=== PATIENT | female | born 1955 | race Caucasian/White ===

== ENCOUNTER → 2016-12-09 | Outpatient (CLI) | payer BC ==
[~2016-12-09] MED LIST: ATOR80TA76 PO; ATR20T PO; CA C1TAB66 PO; CHOLESTEROL MED?; FENO135C PO; MELO7.5T46 PO; METO-333 PO; METO25TA PO; MILK175C PO; MTF500T; MULT-608 PO; NF-TYLARTH PO; OMEG1CAP24 PO; OXYC-12 PO; SITA25TA5 PO; [UNRECOGNIZED DRUG - OTHER] PO
--- OUTSIDE RECORDS SUMMARY | 2016-12-09 10:32 | XMS REPORT | Continuity of Care Document ---
Author Author [facility] Organization [facility] Address Unknown Phone Unavailable Care Team Providers Care Channel Cementer Name Role Phone ELOISA GOLDMAN DO PCP Insurance Providers Payer Name Policy Number [id number] Farhad Clement [facility] Self / Same As Patient Advance Directives Directive Response Recorded Date/Time Advance Directives Yes 12/08/15 9:48am Health Care Power of Health Administration Teacher No 12/08/15 9:48am Organ Donor Yes 12/08/15 9:48am Problems No problem information available. Medications Current Home Medications Medication Dose Units Route Directions Days/Qty Instructions Start Date Fenofibric Acid (Choline) 135 Mg 135 Mg Oral Daily 02/02/10 [place]-3 Fatty Acids/Fish Oil 1 Each 1 Each Oral Daily 07/17/12 Multivitamins 1 Tab 1 Tab Oral Daily 07/17/12 Atorvastatin Calcium 80 Mg 80 Mg Oral Daily 12/04/15 Metoprolol Tartrate 25 Mg 25 Mg Oral Daily 12/04/15 Sitagliptin Phosphate 25 Mg 25 Mg Oral Daily 12/04/15 Meloxicam 7.5 Mg 7.5 Mg Oral Daily 12/04/15 Past Home Medications Medication Directions Ordered Status Metformin Hcl (Glucophage) 500 Mg Tablet, 02/02/10 Discontinued Atorvastatin Calcium 20 Mg Tablet, 80 Mg Oral Daily 02/02/10 Discontinued [Cholesterol Med?] , 02/02/10 Discontinued [Ongeleza] , 500 Mg Oral Daily 07/17/12 Discontinued Metoprolol Succinate 25 Mg Tab.sr.24h, 0.5 Tab Oral Daily 07/17/12 Discontinued Ca Carbonate/Vitamin D3/Vit K 1 Each Tab.chew, 1 Each Oral Daily 07/17/12 Discontinued Acetaminophen 650 Mg Cplt, 2 Tab Oral Daily 07/17/12 Discontinued Milk Thistle Fruit Extract 175 Mg Capsule, 175 Mg Oral Daily 07/17/12 Discontinued Oxycodone Hcl/Acetaminophen 1 Each Tablet, 1 Each Oral Every 4HRS as needed 07/30/12 Discontinued Social History Social History Problem Response Recorded Date/Time Recent Foreign Travel No 04/13/2016 9:13am Hospital Discharge Instructions No hospital discharge instructions. Plan of Care Prescriptions See Medication Section Functional Status No functional status results. Allergies, Adverse Reactions, Alerts Allergen Type Severity Reaction Status Last Updated Sulfa (Sulfonamide Antibiotics) ([id number]) Allergy RASH Active adhesive ([id number]) Allergy BLISTERS Active 07/17/12 Immunizations No immunization records. Vital Signs No known vital signs results. Results No known relevant diagnostic tests, laboratory data and/or discharge summary. Procedures No known history of procedures. Encounters Encounter Location Arrival/Admit Date Discharge/Depart Date Attending Provider Discharged Recurring [facility] 05/07/16 11:23am 12:07pm ELOISA GOLDMAN DO
--- NOTE | 2016-12-10 10:41 | Diagnostic Imaging Report ---
Bilateral screening mammogram. The current study was also evaluated with a Computer Aided Detection (CAD) system. INDICATION: Screening. No current complaints stated on the questionnaire. COMPARISON: 11/14/2012. FINDINGS: The breasts are composed of scattered fibroglandular densities. There are from occasional benign-appearing calcifications. Allowing for technique and positional differences, no suspicious change is seen. IMPRESSION: No significant change. ACR BI-RADS Category 2: Benign findings. Result letter will be mailed to the patient. Note: At least 10% of breast cancer is not imaged by mammography. Dictated by: Dictated on workstation # [id number]
== END ==
LOC: RAD 10:29
PROVIDERS: ATTEND Nurse Practitioner Family
DX: Z12.31 Encounter for screening mammogram for malignant neoplasm of breast (principal)
CPT/HCPCS: 77067

== ENCOUNTER → 2018-01-13 | Outpatient (CLI) | payer BC ==
--- NOTE | 2018-01-13 13:29 | Diagnostic Imaging Report ---
INDICATION: Digital mammogram bilateral screening. This study was compared to the prior exams of 12/09/16 and 11/14/12. At this time, there are no current complaints. The current study was also evaluated with a Computer Aided Detection (CAD) system. FINDINGS: There are scattered fibroglandular densities in both breasts which could obscure a lesion. Overall, there does not appear to have been any significant change when compared to the prior exam. No primary or secondary sign of malignancy is noted. IMPRESSION: There is no radiographic evidence for malignancy. ACR BI-RADS Category 1: Negative. Result letter will be mailed to the patient. Note: At least 10% of breast cancer is not imaged by mammography. Dictated by: Dictated on workstation # [id number]
== END ==
LOC: RAD 07:55
PROVIDERS: ATTEND Nurse Practitioner Family
DX: Z12.31 Encounter for screening mammogram for malignant neoplasm of breast (principal)
CPT/HCPCS: 77067

== ENCOUNTER → 2019-02-28 | Outpatient (CLI) | payer BC ==
--- NOTE | 2019-02-28 09:41 | Diagnostic Imaging Report ---
INDICATION: Routine screening. COMPARISON: 01/13/2018 and 12/09/2016. TECHNIQUE: 2D and 3D bilateral screening mammography was performed with CAD. FINDINGS: Scattered fibroglandular densities are identified bilaterally. The parenchymal pattern is stable. No dominant mass or malignant appearing microcalcifications are seen. The axillae are unremarkable. IMPRESSION: No mammographic features suspicious for malignancy are identified. ACR BI-RADS Category 1: Negative. Result letter will be mailed to the patient. Note: At least 10% of breast cancer is not imaged by mammography. Dictated by: Dictated on workstation # [id number]
== END ==
LOC: RAD 07:12
PROVIDERS: ATTEND Family Medicine
DX: Z12.31 Encounter for screening mammogram for malignant neoplasm of breast (principal)
CPT/HCPCS: 77067

== ENCOUNTER → 2019-05-08 | Outpatient (CLI) | payer BC ==
--- NOTE | 2019-05-08 11:04 | Diagnostic Imaging Report ---
PROCEDURE: US Thyroid. TECHNIQUE: Multiple real-time grayscale images were obtained of the thyroid in various projections. INDICATION: Thyroid nodules. Findings: Comparison is 03/18/2009. The right lobe of the thyroid is enlarged measuring 5.0 x 2.6 x 1.5 cm. There are multiple right-sided nodules along Nodule 1: Right side. 29 x 22 x 20 mm. This nodule is cystic and solid with a solid hyperechoic component. The assessment of this nodule is TIRADS 2. Nodule 2: Right side. 11 x 8 x 12 mm. This nodule is solid and hypoechoic, wider than tall with well defined margins and no internal calcifications. This nodule was 7 x 6 x 5 mm on the prior exam. The assessment of this nodule is TIRADS 4. Nodule 3: Right side. 17 x 17 x 21 mm. This node nodule is solid, hypoechoic and taller than wide with ill-defined margins and no internal calcifications. This nodule was 13 x 9 x 11 mm on the prior exam. Assessment of this nodule is TIRADS 5. Impression: 1. A 12 mm moderately suspicious right-sided thyroid nodule should be followed (TIRADS 4). 2. A 21 mm highly suspicious right thyroid nodule is recommended for biopsy (TIRADS 5). TIRADS categories: TIRADS 1: Benign No FNA TIRADS 2: Not Suspicious No FNA TIRADS 3: Mildly Suspicious FNA if ? 2.5 cm Follow if ? 1.5 cm (At 1, 3 and 5 years from initial scan) TIRADS 4: Moderately Suspicious FNA if ? 1.5 cm Follow if ? 1 cm (At 1, 2, 3 and 5 years from initial scan) TIRADS 5: Highly Suspicious FNA if ? 1 cm Follow if ? 0.5 cm (Annually for 5 years from initial scan) Dictated by: Dictated on workstation # [id number]
== END ==
LOC: RAD 10:15
PROVIDERS: ATTEND Nurse Practitioner Family
DX: E04.2 Nontoxic multinodular goiter (principal)
CPT/HCPCS: 76536

== ENCOUNTER → 2019-05-17 | Outpatient (CLI) | payer BC ==
[~2019-05-17] VITALS: Ht 175.3 cm; Wt 95.3 kg
[~2019-05-17] MED LIST changes: +LIDOCAINE 1% INJ 20 ML 20 ML VIAL INJ ONE
--- NOTE | 2019-05-17 14:50 | Diagnostic Imaging Report ---
INDICATION: Right thyroid nodule. Patient presents for ultrasound-guided fine-needle aspiration. FINDINGS: Patient was brought to the procedure room, placed on table in the supine position. Ultrasound imaging over the right neck was performed to evaluate appropriate entry site. Right neck was then prepped and draped in the usual sterile fashion. Small amount of 1% lidocaine was utilized for local anesthesia. Total of four passes were made into the hypoechoic nodule in the right lobe of the thyroid, posterior to the cystic lesion utilizing 25-gauge needles. A fine-needle aspiration technique was utilized. Hemostasis was obtained using manual compression. Patient tolerated the procedure well. IMPRESSION: Ultrasound-guided fine-needle aspiration of the hypoechoic nodule in the right lobe of the thyroid, described on prior imaging from 05/08/2019. Cytology results are currently pending. Dictated by: Dictated on workstation # [id number]
== END ==
LOC: RAD 10:30
PROVIDERS: ATTEND Otolaryngology Otolaryngology/Facial Plastic Surgery
DX: E04.2 Nontoxic multinodular goiter (principal)

== ENCOUNTER → 2019-07-30 | Outpatient (CLI) | payer BC ==
[~2019-07-30] MED LIST changes: -LIDOCAINE 1% INJ 20 ML 20 ML VIAL INJ ONE
== END ==
LOC: CARD 08:08
PROVIDERS: ATTEND Internal Medicine Cardiovascular Disease
DX: E78.2 Mixed hyperlipidemia (principal); I10 Essential (primary) hypertension; E04.1 Nontoxic single thyroid nodule; R00.2 Palpitations
CPT/HCPCS: 93306

== ENCOUNTER → 2019-08-01 | Outpatient (CLI) | payer BC ==
[~2019-08-01] VITALS: Ht 177 cm; Wt 97.0 kg
[~2019-08-01] MED LIST changes: +CATHETER FLUSH 10 ML SYR IV PRN
[2019-08-01 09:27] VITALS: BP 140/90
--- NOTE | 2019-08-01 21:39 | STRESS TEST ---
DATE OF SERVICE: 08/01/2019 EXERCISE MYOVIEW STRESS TEST Baseline heart rate is 67. Baseline blood pressure 147/91. Baseline EKG is sinus rhythm with no ischemic changes. In summary, the patient was injected with 10.97 mCi of technetium-99 Myoview and the resting images were obtained. Then, the patient started exercising with a baseline heart rate, blood pressure and EKG mentioned above. The patient was able to exercise for 3 minutes and 30 seconds on standard Vadim protocol. With peak exercise level, the EKG was showing minimal nondiagnostic changes. Blood pressure was 190/92. During recovery, heart rate and blood pressure returned to baseline. EKG returned to baseline. The resting and stress images were reviewed and compared in the short axis, horizontal long axis, and vertical long axis views. Review of the images showed good radiotracer uptake with no significant ischemia or infarction. SSS is 2, SDS 1, TID value 1.03. On the gated images, the left ventricle appeared to be normal size with normal contractility. Calculated ejection fraction 67%. CONCLUSION: 1. The patient has fair exercise tolerance for a total of 3 minutes and 30 seconds on standard Vadim protocol, total of 5.2 METS achieving 99% of maximum expected heart rate. 2. Nondiagnostic EKG changes with exercise returned to baseline during recovery. 3. No significant ischemia or infarction on SPECT images. 4. Normal left ventricular size with normal contractility. Calculated ejection fraction is 67%. Job ID: [id number] DocumentID: [id number] Dictated Date: 08/01/2019 16:16:12 Employment Security Officer Date: 08/01/2019 21:39:06 Dictated By: JESSICA BAPTISTE MD
== END ==
LOC: CARD 07:37
PROVIDERS: ATTEND Internal Medicine Cardiovascular Disease
DX: E78.2 Mixed hyperlipidemia (principal); I10 Essential (primary) hypertension; E04.1 Nontoxic single thyroid nodule; R00.2 Palpitations
CPT/HCPCS: 78452; 93017

== ENCOUNTER → 2020-04-18 | Outpatient (CLI) | payer BC ==
[~2020-04-18] VITALS: Ht 175.3 cm; Wt 98.2 kg
[~2020-04-18] MED LIST changes: -CATHETER FLUSH 10 ML SYR IV PRN; +EZET10TA49 PO; +FAMO40TA6 PO; +LEVO150T6 PO; +METO50TA7 PO
== END | disposition home or self-care (01) ==
LOC: PREOP 04-17 05:48
PROVIDERS: ATTEND Internal Medicine
DX: Z01.818 Encounter for other preprocedural examination (principal)

== ENCOUNTER → 2020-07-16 | Outpatient (CLI) | payer BC | LOC: LABNPT 08:05 | PROVIDERS: ATTEND Family Medicine | DX: R05 Cough (principal); R06.00 Dyspnea, unspecified; Z20.828 Contact with and (suspected) exposure to other viral communicable diseases | CPT/HCPCS: 87635 ==

== ENCOUNTER 2020-07-30 05:32 | Outpatient (RCR) | payer BC ==
[~2020-07-30] VITALS: Ht 175 cm; Wt 100.0 kg
[~2020-07-30 05:32] MED LIST changes: +PANT20TA18 PO
== END 2020-07-30 10:38 | disposition home or self-care (01) ==
LOC: PREOP 05:32
PROVIDERS: ATTEND Internal Medicine
DX: Z01.818 Encounter for other preprocedural examination (principal)
CPT/HCPCS: 87635

== ENCOUNTER 2020-08-01 07:32 | Day surgery (SDC) | payer MEDICARE ==
--- NOTE | 2020-07-18 20:25 | HISTORY AND PHYSICAL ---
DATE OF SERVICE: COLONOSCOPY HISTORY AND PHYSICAL DATE OF ADMISSION: 08/01/2020. HISTORY OF PRESENT ILLNESS: This is an addendum history and physical. The patient was initially seen on 04/02/2020, but postponed her colonoscopy, I believe due to COVID related issues. She was due for screening colonoscopy and did have a past history of colon polyps when last performed by Dr. Real. She was set up for diagnostic EGD due to intermittent dysphagia. It temporarily improved, but now has recurred predominantly to solids. There have been no other changes in her medical history and she has not had any melena or bright red blood per rectum. PHYSICAL EXAMINATION: GENERAL: Revealed a white female appeared to be in no acute distress. VITAL SIGNS: Blood pressure 138/80. CHEST: Clear. CARDIOVASCULAR: Regular rate and rhythm without S3 or S4. ABDOMEN: Reveals some epigastric discomfort without rebound or guarding. No mass or organomegaly was noted. ASSESSMENT AND PLAN: The patient is set up for screening colonoscopy and diagnostic EGD as noted above on 08/01/2020. Prep instructions were given. Job ID: [id number] DocumentID: [id number] Dictated Date: 07/09/2020 11:55:39 Collision Repairer Date: 07/09/2020 12:44:40 Dictated By: KRISTAL COREY MD
[~2020-08-01] VITALS: Ht 175 cm; Wt 100.0 kg
[2020-08-01] MEDS ORDERED: LACTATED RINGERS 1,000 ML IV STA (07:43)
[2020-08-01] MEDS ORDERED: HURRICAINE EXT TUBE (BENZOCAINE) XX PRN (07:45)
[2020-08-01] MEDS ORDERED: LIDOCAINE JELLY 2% 6 ML SYRINGE MM PRN (07:45)
[2020-08-01] MEDS ORDERED: LACTATED RINGERS 1,000 ML IV ONE (07:49)
[2020-08-01 08:01] VITALS: BP 139/90
[2020-08-01] MEDS ORDERED: LIDOCAINE JELLY 2% 6 ML SYRINGE ONE (08:05)
[2020-08-01] MEDS ORDERED: HURRICAINE EXT TUBE (BENZOCAINE) ONE (08:05)
--- NOTE | 2020-08-01 08:07 | Pre-Op Note & Conscious Sedat ---
Pre-Operative Progress Note H&P Reviewed The H&P was reviewed, patient examined and no changes noted. Date H&P Reviewed: Aug 01, 2020 Time H&P Reviewed: 08:07 Conscious Sedation Pre-Proced ASA Score 2 For ASA 3 and 4: Consider anesthesia and medical clearance. Also, for patients with a history of failed moderate sedation consider anesthesia. Airway Lungs Heart ASA score ASA 1: a normal healthy patient ASA 2: a patient with a mild systemic disease (mid diabetes, controlled hypertension, obesity ASA 3: a patient with a severe systemic disease that limits activity (angina, COPD, prior Myocardial infarction) ASA 4: a patient with an incapacitating disease that is a constant threat to life (CHF, renal failure) ASA 5: a moribund patient not expected to survive 24 hrs. (ruptured aneurysm) ASA 6: a declared brain- patient whose organs are being harvested. For emergent operations, add the letter E after the classification Mallampati Classification Grade 2 Sedation Plan Analgesia, Amnesia, Plan communicated to team members, Discussed options with patient/fam, Discussed risks with patient/fam The patient is an appropriate candidate to undergo the planned procedure, sedation, and anesthesia. The patient immediately re-assessed prior to indication. KRISTAL COREY MD Aug 01, 2020 08:07
[2020-08-01] MEDS ORDERED: MIDAZOLAM 2 MG/2 ML (VERSED) VIAL ONE (08:09)
[2020-08-01] MEDS ORDERED: PROPOFOL INJECTION 50 ML IV ONE ×2 (08:09→08:47)
[2020-08-01 09:10] VITALS: BP 123/69
[2020-08-01 09:15] VITALS: BP_SYST 116; BP_SYST 119; BP_DIAS 72; BP_DIAS 75
[2020-08-01 09:42] VITALS: BP 122/89
--- NOTE | 2020-08-01 19:32 | OPERATIVE REPORT ---
DATE OF SERVICE: PANENDOSCOPY SUMMARY INDICATION FOR THE PROCEDURE: Left lower quadrant abdominal pain and dysphagia. The patient was placed in the left lateral decubitus position. The upper endoscope was inserted in the oral cavity and under direct visualization, esophagus was intubated. The endoscope was passed down the esophagus, stomach and second portion of the duodenum. Careful inspection was made as the endoscope was withdrawn. FINDINGS: Posterior pharynx is unremarkable as well as the epiglottis, arytenoids aperture and true and false vocal folds. The proximal, mid and distal esophagus was unremarkable. There was a small hiatal hernia with no evidence for erosive esophagitis. Biopsies from the Z line were obtained. The cardia, fundus, antrum, pylorus, pyloric channel, duodenal bulb and second portion of the duodenum were unremarkable. ASSESSMENT: Small hiatal hernia is present without evidence for erosive esophagitis. Biopsies from the Z line are pending. Advised continued proton pump inhibitor therapy. We then proceeded with colonoscopy. DESCRIPTION OF PROCEDURE: Prior to undergoing colonoscopy, digital rectal evaluation was performed. Anal sphincter tone was normal and the perianal reflexes intact. No abnormalities were noted on digital inspection of anal canal or distal rectal vault. The colonoscope was inserted into the rectum and under direct visualization advanced to cecum. Quality of prep was fair. Procedure was done under Diprivan based anesthesia. FINDINGS: There was no evidence for internal or external hemorrhoids and the rectum, sigmoid colon, descending colon, transverse colon, ascending colon and cecum were unremarkable. The quality of prep was fair. ASSESSMENT AND PLAN: Normal colonoscopy to the cecum. The patient does have a past history for colon polyps. Provided that her health remains fair with expectations of greater than a 5-year survival, we would consider repeat surveillance colonoscopy in 5 years. She was reassured by today's findings. I thank you for the referral of this pleasant lady. Job ID: [id number] DocumentID: [id number] Dictated Date: 08/01/2020 11:55:08 Industrial Cook Date: 08/01/2020 19:30:34 Dictated By: KRISTAL COREY MD
--- NOTE | 2020-08-05 11:04 | Anesthesia-General Post-Op ---
MAC Significant Intra-Op Events Notes late entry 08/01 @0930 Patient Condition Mental Status/LOC: Same as Preop Cardiovascular: Satisfactory Nausea/Vomiting: Absent Respiratory: Satisfactory Pain: Controlled Complications: Absent Post Op Complications Complications None Follow Up Care/Instructions Patient Instructions None needed. Anesthesiology Discharge Order Discharge Order Patient is doing well, no complaints, stable vital signs, no apparent adverse anesthesia problems. No complications reported per nursing. JAMEEL LAGOS CRNA Aug 05, 2020 11:04
== END 2020-08-01 10:50 | disposition home or self-care (01) ==
LOC: ENDO 07:32
PROVIDERS: ATTEND Internal Medicine
DX: Z12.11 Encounter for screening for malignant neoplasm of colon (principal); K29.50 Unspecified chronic gastritis without bleeding; K44.9 Diaphragmatic hernia without obstruction or gangrene; I10 Essential (primary) hypertension; K21.9 Gastro-esophageal reflux disease without esophagitis; G62.9 Polyneuropathy, unspecified; E66.9 Obesity, unspecified; Z68.32 Body mass index [BMI] 32.0-32.9, adult; Z79.899 Other long term (current) drug therapy; Z88.2 Allergy status to sulfonamides; Z91.048 Other nonmedicinal substance allergy status; Z85.850 Personal history of malignant neoplasm of thyroid; Z86.010 Personal history of colon polyps
CPT/HCPCS: 43239; G0105

== ENCOUNTER → 2020-08-19 | Outpatient (CLI) | payer MEDICARE ==
[2020-08-19 09:04] LABS: ABSOLUTE RETIC # 84 10e9/uL (24-90); BASOPHILS # (AUTO) 0.1 10^3/uL (0.0-0.1); BASOPHILS % (AUTO) 2 % (0-10); EOSINOPHILS # (AUTO) 0.7 10^3/uL (0.0-0.3); EOSINOPHILS % (AUTO) 11 % (0-10); HEMATOCRIT 46 % (35-52); HEMOGLOBIN 15.8 g/dL (11.5-16.0); LYMPHOCYTES # (AUTO) 2.3 10^3/uL (1.0-4.0); LYMPHOCYTES % (AUTO) 35 % (12-44); MEAN CORPUSCULAR HEMOGLOBIN 31 pg (25-34); MEAN CORPUSCULAR HGB CONC 35 g/dL (32-36); MEAN CORPUSCULAR VOLUME 89 fL (80-99); MEAN PLATELET VOLUME 10.5 fL (9.0-12.2); MONOCYTES # (AUTO) 0.5 10^3/uL (0.0-1.0); MONOCYTES % (AUTO) 7 % (0-12); NEUTROPHILS % (AUTO) 45 % (42-75); PLATELET COUNT 281 10^3/uL (130-400); RETICULOCYTE % 1.64 % (0.50-2.40); WHITE BLOOD COUNT 6.6 10^3/uL (4.3-11.0)
[2020-08-19 09:52] LABS: EOSINOPHILS % (MANUAL) 8 %; LYMPHOCYTES % (MANUAL) 40 %; MONOCYTES % (MANUAL) 6 %; NEUTROPHILS % (MANUAL) 45 %
[2020-08-19 09:53] LABS: RBC MORPH NORMAL; REACTIVE LYMPHOCYTES 1 %
== END ==
LOC: LAB 08:40
PROVIDERS: ATTEND Nurse Practitioner Family
DX: D58.2 Other hemoglobinopathies (principal)
CPT/HCPCS: 36415; 81270; 85007; 85027; 85045; 85055

== ENCOUNTER → 2021-01-23 | Outpatient (CLI) | payer MEDICARE ==
--- NOTE | 2021-01-23 09:57 | Diagnostic Imaging Report ---
INDICATION: Routine screening. Comparison is made with prior mammogram 02/26/2019 and 01/13/2018. 2-D and 3-D bilateral screening mammography was performed with CAD. Both breasts are heterogeneously dense, limiting the sensitivity of mammography. Fibronodular parenchymal pattern appears stable. No spiculated mass or malignant appearing microcalcifications are seen. Axillae are unremarkable. IMPRESSION: BI-RADS Category 2 No mammographic features suspicious for malignancy are identified. ACR BI-RADS Category 2: Benign findings. Result letter will be mailed to the patient. Note: At least 10% of breast cancer is not imaged by mammography. Dictated by: Dictated on workstation # [id number]
== END ==
LOC: RAD 08:00
PROVIDERS: ATTEND Nurse Practitioner Family
DX: Z12.31 Encounter for screening mammogram for malignant neoplasm of breast (principal)
CPT/HCPCS: 77063; 77067

== ENCOUNTER → 2021-09-17 | Outpatient (CLI) | payer MEDICARE ==
[~2021-09-17] MED LIST changes: +RT-ALBUTEROL SULF 2.5 MG/3 ML PRE-MIX VIAL INH ONE
== END ==
LOC: RT 09:15
PROVIDERS: ATTEND Nurse Practitioner Family
DX: R05.3 Chronic cough (principal)
CPT/HCPCS: 94060; 94726; 94729

== ENCOUNTER → 2022-06-22 | Outpatient (CLI) | payer MEDICARE ==
[~2022-06-22] MED LIST changes: -RT-ALBUTEROL SULF 2.5 MG/3 ML PRE-MIX VIAL INH ONE
--- NOTE | 2022-06-22 10:04 | Diagnostic Imaging Report ---
PROCEDURE: US Thyroid. TECHNIQUE: Multiple real-time grayscale images were obtained of the thyroid in various projections. INDICATION: Papillary thyroid carcinoma COMPARISON: 05/08/2019 and 05/17/2019 FINDINGS: Total thyroidectomy is identified, new from the prior examination. No suspicious soft tissue lesion seen within the thyroid bed. No abnormal lymph nodes identified within the [id number]. IMPRESSION: Interval thyroidectomy without suspicious abnormal soft tissue mass or adenopathy. Dictated by: Dictated on workstation # [id number]
== END ==
LOC: RAD 08:39
PROVIDERS: ATTEND Physician Assistant
DX: C73 Malignant neoplasm of thyroid gland (principal); E89.0 Postprocedural hypothyroidism
CPT/HCPCS: 76536

== ENCOUNTER 2022-12-03 20:13 | Emergency (ER) | payer MEDICARE ==
[~2022-12-03] VITALS: Ht 180 cm; Wt 100.0 kg
[2022-12-03] MEDS ORDERED: ONDA4TAB11 (20:33)
[2022-12-03] MEDS ORDERED: AMOX500C2 (20:33)
[2022-12-03] MEDS ORDERED: ACHD5005 (20:33)
--- NOTE | 2022-12-03 20:54 | ED Chest Pain ---
General Chief Complaint: Chest Wall Stated Complaint: HEART RACING Nursing Triage Note: medial chest pain, left flank pain since 1699. reports worse after eating. hiatial hernia repair 11/22/22 at [place]. Source: patient Exam Limitations: no limitations History of Present Illness Date Seen by Provider: Dec 03, 2022 Time Seen by Provider: 20:40 Initial Comments Patient is a 67 yo female who had a oscar fundoplication approximately 2 weeks ago at [facility] in [place], [place] by Dr Rachael Arevalo. She had been doing fairly well until today when she developed upper abdominal/ low chest discomfort. Worse with deep breath and movement. No fevers, SOB, productive cough. No nausea. She is very gassy and belching alot. Was told not to take her pantoprazole post surgery so has not been. Only on a liquid diet currently and has scheduled follow up next . No history of CAD. She does have High blood pressure. No problems with urination. Smaller and less frequent BM recently. 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 NTG SL CENTRAL OFFICE OPERATOR: No Associated Symptoms: No diaphoresis; heartburn ("belching" been chronic 2 weeks - and before); No shortness of breath Allergies and Home Medications Allergies Coded Allergies: Sulfa (Sulfonamide Antibiotics) (Unverified Allergy, Unknown, RASH, 07/24/20) adhesive (Unverified Allergy, Unknown, BLISTERS, 07/24/20) Patient Home Medication List Home Medication List Reviewed: Yes Amoxicillin (Amoxicillin) 500 Mg Capsule, (Reported) Entered as Reported by: NIA IYER on 12/03/222032 Last Action: New Order Atorvastatin Calcium (Atorvastatin Calcium) 80 Mg Tablet, 80 MG PO DAILY, (Reported) Entered as Reported by: CHICHI STPEHENS on 12/04/15 1343 Ezetimibe (Ezetimibe) 10 Mg Tablet, 10 MG PO DAILY, (Reported) Entered as Reported by: CHICHI STEPHENS on 04/18/20 1030 Famotidine (Famotidine) 40 Mg Tablet, 40 MG PO DAILY, (Reported) Entered as Reported by: CHICHI STEPHENS on 04/18/20 1039 Hydrocodone/Acetaminophen (Hydrocodone-Acetamin 5-325 mg) 5 Mg-325 Mg Tablet, (Reported) Entered as Reported by: NIA IYER on 12/03/222032 Last Action: New Order Levothyroxine Sodium (Levothyroxine Sodium) 150 Mcg Tablet, 150 MCG PO DAILY, (Reported) Entered as Reported by: CHICHI STEPHENS on 04/18/20 1039 Metoprolol Succinate (Metoprolol Succinate) 50 Mg Tab.er.24h, 50 MG PO DAILY, (Reported) Entered as Reported by: CHICHI STEPHENS on 04/18/20 1039 Ondansetron (Ondansetron Odt) 4 Mg Tab.rapdis, (Reported) Entered as Reported by: NIA IYER on 12/03/222032 Last Action: New Order Pantoprazole Sodium (Pantoprazole Sodium) 20 Mg Tablet.dr, 20 MG PO DAILY, (Reported) Entered as Reported by: SELVIN JEROME on 07/24/20 1106 Review of Systems Review of Systems Constitutional: see HPI EENTM: No Symptoms Reported Respiratory: No Symptoms Reported Cardiovascular: Chest Pain Gastrointestinal: Other (belching; mild nausea; decreased stool and gas out put) Genitourinary: No Symptoms Reported Musculoskeletal: no symptoms reported Skin: no symptoms reported Psychiatric/Neurological: No Symptoms Reported All Other Systems Reviewed Negative Unless Noted: Yes Past Pzozwgv-Bbofwq-Uvkpuw Hx Patient Social History Tobacco Use?: No Substance use?: No Alcohol Use?: No Pt feels they are or have been: No Immunizations Up To Date First/Initial COVID19 Vaccinat: x4 Seasonal Allergies Seasonal Allergies: No Past Medical History Surgery/Hospitalization HX: thryoidectomy, thryoid ca, htn, hld, hiatial hernia repair Surgeries: Yes (bilat TKR, DXLS WITH OVARIAN CYSTECTOMY, HERNIA SX, ) Hysterectomy, Oophorectomy, Thyroidectomy Respiratory: Yes (spots on lung being watched, SOB, ) Cardiac: Yes Hypertension Neurological: No Reproductive Disorders: Yes 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 Sexually Transmitted Disease: No HIV/AIDS: No Genitourinary: No Gastrointestinal: Yes (dysphagia, ) Gastroesophageal Reflux, Polyps Musculoskeletal: Yes (OSTEOARTHRITIS) Arthritis Endocrine: Yes (thyroid ca) HEENT: No Cancer: Yes Cervical, Thyroid What Type of Treatment Did You: Surgical Intervention Psychosocial: No Integumentary: No Blood Disorders: No Adverse Reaction/Blood Tranf: No (N/A) Physical Exam Vital Signs Vital Signs - First Documented 12/03/22 20:20 Temp 36.2 Pulse 75 Resp 20 B/P (MAP) 159/98 (118) Pulse Ox 94 O2 Delivery Room Air Capillary Refill : Less Than 3 Seconds Height, Weight, BMI Height: 5'9.00" Weight: 210lbs. 0.0oz. 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 Norm as Tested Skin: Normal Color, Warm/Dry, Other (surgical port sites healing well) Progress/Results/Core Measures Results/Orders Lab Results Laboratory Tests Test 12/03/22 20:59 Range/Units White Blood Count 15.1 H 4.3-11.0 10^3/uL Red Blood Count 5.01 3.80-5.11 10^6/uL Hemoglobin 15.6 11.5-16.0 g/dL Hematocrit 44 35-52 % Mean Corpuscular Volume 89 80-99 fL Mean Corpuscular Hemoglobin 31 25-34 pg Mean Corpuscular Hemoglobin Concent 35 32-36 g/dL Red Cell Distribution Width 11.8 10.0-14.5 % Platelet Count 348 130-400 10^3/uL Mean Platelet Volume 10.3 9.0-12.2 fL Immature Granulocyte % (Auto) 1 % Neutrophils (%) (Auto) 74 42-75 % Lymphocytes (%) (Auto) 17 12-44 % Monocytes (%) (Auto) 6 0-12 % Eosinophils (%) (Auto) 2 0-10 % Basophils (%) (Auto) 1 0-10 % Neutrophils # (Auto) 11.3 H 1.8-7.8 10^3/uL Lymphocytes # (Auto) 2.6 1.0-4.0 10^3/uL Monocytes # (Auto) 0.9 0.0-1.0 10^3/uL Eosinophils # (Auto) 0.3 0.0-0.3 10^3/uL Basophils # (Auto) 0.1 0.0-0.1 10^3/uL Immature Granulocyte # (Auto) 0.1 0.0-0.1 10^3/uL Neutrophils % (Manual) 72 % Lymphocytes % (Manual) 15 % Monocytes % (Manual) 6 % Eosinophils % (Manual) 1 % Basophils % (Manual) 1 % Band Neutrophils 0 % Reactive Lymphocytes 5 % Blood Morphology Comment NORMAL Prothrombin Time 13.6 12.2-14.7 SEC INR Comment 1.0 0.8-1.4 Activated Partial Thromboplast Time 27 24-35 SEC Sodium Level 139 135-145 MMOL/L Potassium Level 3.9 3.6-5.0 MMOL/L Chloride Level 106 98-107 MMOL/L Carbon Dioxide Level 22 21-32 MMOL/L Anion Gap 11 5-14 MMOL/L Blood Urea Nitrogen 13 7-18 MG/DL Creatinine 0.82 0.60-1.30 MG/DL Estimat Glomerular Filtration Rate 78 BUN/Creatinine Ratio 16 Glucose Level 113 H 70-105 MG/DL Calcium Level 9.2 8.5-10.1 MG/DL Corrected Calcium 8.8 8.5-10.1 MG/DL Magnesium Level 2.0 1.6-2.4 MG/DL Total Bilirubin 1.0 0.1-1.0 MG/DL Aspartate Amino Transf (AST/SGOT) 31 5-34 U/L Alanine Aminotransferase (ALT/SGPT) 43 0-55 U/L Alkaline Phosphatase 121 40-136 U/L Troponin I < 0.028 <0.028 NG/ML Total Protein 7.1 6.4-8.2 GM/DL Albumin 4.5 3.2-4.5 GM/DL My Orders Orders - HAFSA HILL MD Cbc With Automated Diff (12/03/22 20:50) Magnesium (12/03/22 20:50) Chest 1 View, Ap/Pa Only (12/03/22 20:50) Ekg Tracing (12/03/22 20:50) Comprehensive Metabolic Panel (12/03/22 20:50) Protime With Inr (12/03/22 20:50) Partial Thromboplastin Time (12/03/22 20:50) O2 (12/03/22 20:50) Monitor-Rhythm Ecg Trace Only (12/03/22 20:50) Ed Iv/Invasive Line Start (12/03/22 20:50) Troponin I Joseph (12/03/22 20:50) Antacid Suspension (Mylanta Suspension (12/03/22 21:00) Lidocaine 2% Viscous 15 Ml (Xylocaine Vi (12/03/22 21:00) Manual Differential (12/03/22 20:59) Ct Abdomen/Pelvis Wo (12/03/22 23:10) Simethicone Tablet (Mylicon Chewable Tab (12/04/22 00:45) Medications Given in ED Current Medications Medications Dose Ordered Sig/Nikita Route Start Time Stop Time Status Last Admin Dose Admin Al Hydrox/Mg Hydrox/Simethicone 30 ml ONCE ONCE PO 12/03/22 21:00 12/03/22 21:01 DC 12/03/22 21:24 30 ML Lidocaine HCl 5 ml ONCE ONCE PO 12/03/22 21:00 12/03/22 21:01 DC 12/03/22 21:24 5 ML Simethicone 160 mg ONCE ONCE PO 12/04/22 00:45 12/04/22 00:47 DC 12/04/22 00:59 160 MG Vital Signs/I&O 12/03/22 12/04/22 20:20 01:14 Temp 36.2 36.4 Pulse 75 76 Resp 20 16 B/P (MAP) 159/98 (118) 122/82 Pulse Ox 94 97 O2 Delivery Room Air Room Air Blood Pressure Mean: 118 Progress Progress Note : Time: 00:30 Progress Note Patient seen and evaluated by me, 67yo with epigastric, low chest pain, left flank and shoulder pain. Evaluation today includes physical exam, EKG, CBC, CH12, coags and troponin. Also Chest xray and CT abdomen and pelvis. Physical exam pertinent for mild epigastric tenderness in the region of surgical sites from Oscar surgery 2 weeks ago. Bowel sounds are present. No chest wall te nderness to palpation, although with deep breath when auscultating her lungs, she states this reproduces her discomfort. VSS. DDx based on history and physical exam includes NSTEMI, bowel obstruction, partial SBO, pneumonia. Labs reviewed and CBC shows mild leukocytosis, chem unremarkable, coags WNL, troponin undetectable. EKG has some baseline wander but overall no evidence of STEMi or other concerning findings. Based on recent surgery and leukocytosis, consideration for CT - which was performed. No evidence of bowel obstruction or other acute process. Patient was given simethicone (due to gasseous distension of the stomach) and GI cocktail. achieved some relief. Suspect bloating due to recent surgery. Advised follow up with surgeon as scheduled and delineated return precautions. Patient and son verbalized understanding, all questions were sought and answered. Initial ECG Impression Date: Dec 03, 2022 Initial ECG Impression Time: 20:20 Initial ECG Rate: 70 Initial ECG Rhythm: Normal Sinus Initial ECG Intervals NM 238 QRS 99 QTc 437 Comment wavy/artifact at baseline; no ST elevation or depression Diagnostic Imaging Diagonstic Imaging: Xray Plain Films/CT/US/NM/MRI: chest Comments [facility], [place] NAME: FARHAD CLEMENT [facility] REC#: [id number] PT STATUS: REG ER : 1955 PHYSICIAN: HAFSA HILL MD ADMIT DATE: 12/03/22/ER Signed Date of Exam:12/03/22 CHEST 1 VIEW, AP/PA ONLY EXAM: Chest 1 view, AP/PA only INDICATION: Chest pain. COMPARISON: None. FINDINGS: Normal heart size and central pulmonary vascularity. No focal pulmonary opacity. No pleural effusion or pneumothorax. No acute osseous finding. IMPRESSION: No acute cardiopulmonary finding. Dictated by: Dictated on workstation # [id number] Dict: 12/03/222104 Trans: 12/03/222214 [facility] [id number] Interpreted by: RENAN MORE MD Electronically signed by: RENAN MORE MD 12/03/222214 Diagonstic Imaging: CT Comments CT abd/pelvis per stat rad report: No acute findings in the abdomen or pelvis; post operative changes in the gastric fundus. Departure Impression Primary Impression: Gas bloat syndrome Additional Impression: Epigastric pain Disposition: 01 HOME, SELF-CARE Condition: Stable Departure-Patient Inst. Decision time for Depature: 00:58 Referrals: SRINATH STOVALL MD (PCP/Family) Primary Care Physician Patient Instructions: Abdominal Pain, Adult ED Add. Discharge Instructions: You can take over the counter Gas X/ Simthicone for the abdominal disco mfort/bloating and belching. Continue your routine medications as prescribed. If you develop a fever, worsening pain, dry heaving/trying to vomit, please return to the Emergency Department for re-evaluation. Please keep your scheduled follow up with Dr Arevalo. Copy Copies To 1: SRINATH STOVALL MD, KATHRYN M MD Dec 03, 2022 20:54
[2022-12-03] MEDS ORDERED: ANTACID SUSP 30 ML UDC (MYLANTA) PO ONE (21:00)
[2022-12-03] MEDS ORDERED: LIDOCAINE 2% VISCOUS 15 ML UDC PO ONE (21:00)
[2022-12-03 21:07] LABS: BASOPHILS # (AUTO) 0.1 10^3/uL (0.0-0.1); BASOPHILS % (AUTO) 1 % (0-10); EOSINOPHILS # (AUTO) 0.3 10^3/uL (0.0-0.3); EOSINOPHILS % (AUTO) 2 % (0-10); HEMATOCRIT 44 % (35-52); HEMOGLOBIN 15.6 g/dL (11.5-16.0); LYMPHOCYTES # (AUTO) 2.6 10^3/uL (1.0-4.0); LYMPHOCYTES % (AUTO) 17 % (12-44); MEAN CORPUSCULAR HEMOGLOBIN 31 pg (25-34); MEAN CORPUSCULAR HGB CONC 35 g/dL (32-36); MEAN CORPUSCULAR VOLUME 89 fL (80-99); MEAN PLATELET VOLUME 10.3 fL (9.0-12.2); MONOCYTES # (AUTO) 0.9 10^3/uL (0.0-1.0); MONOCYTES % (AUTO) 6 % (0-12); NEUTROPHILS # (AUTO) 11.3 10^3/uL (1.8-7.8); NEUTROPHILS % (AUTO) 74 % (42-75); PLATELET COUNT 348 10^3/uL (130-400); WHITE BLOOD COUNT 15.1 10^3/uL (4.3-11.0)
--- NOTE | 2022-12-03 21:07 | Diagnostic Imaging Report ---
EXAM: Chest 1 view, AP/PA only INDICATION: Chest pain. COMPARISON: None. FINDINGS: Normal heart size and central pulmonary vascularity. No focal pulmonary opacity. No pleural effusion or pneumothorax. No acute osseous finding. IMPRESSION: No acute cardiopulmonary finding. Dictated by: Dictated on workstation # [id number]
[2022-12-03 21:18] LABS: PROTHROMBIN TIME PATIENT 13.6 SEC (12.2-14.7)
[2022-12-03 21:23] LABS: ALBUMIN 4.5 GM/DL (3.2-4.5); POTASSIUM 3.9 MMOL/L (3.6-5.0)
[2022-12-03 21:24] LABS: CALCIUM 9.2 MG/DL (8.5-10.1)
[2022-12-03 21:25] LABS: TOTAL PROTEIN 7.1 GM/DL (6.4-8.2)
[2022-12-03 21:29] LABS: CREATININE SERUM 0.82 MG/DL (0.60-1.30)
[2022-12-03 23:03] LABS: BAND NEUTROPHILS 0 %; BASOPHILS % (MANUAL) 1 %; EOSINOPHILS % (MANUAL) 1 %; LYMPHOCYTES % (MANUAL) 15 %; MONOCYTES % (MANUAL) 6 %; NEUTROPHILS % (MANUAL) 72 %; REACTIVE LYMPHOCYTES 5 %
[2022-12-03 23:04] LABS: RBC MORPH NORMAL
[2022-12-04] MEDS ORDERED: SIMETHICONE 80 MG (MYLICON) CHEW PO ONE (00:45)
[2022-12-04 01:14] VITALS: BP 122/82
--- NOTE | 2022-12-04 06:54 | Diagnostic Imaging Report ---
PROCEDURE: CT abdomen and pelvis without contrast. TECHNIQUE: Multiple contiguous axial images were obtained through the abdomen and pelvis without the use of intravenous contrast. Auto Exposure Controls were utilized during the CT exam to meet ALARA standards for radiation dose reduction. INDICATION: Epigastric abdominal pain COMPARISON: 10/15/2015 FINDINGS: There is atelectasis in the dependent lungs, with likely basilar scarring. The heart is mildly prominent. The liver demonstrates no focal lesions. The liver measures mildly large. There may be some fatty infiltration as there is some heterogeneity. The spleen appears normal. The pancreas appears normal. The adrenal glands are normal. The kidneys demonstrate no hydronephrosis. There are punctate calculi in the left kidney. No obstructing calculi are seen bilaterally. There is a small cyst in the right kidney measuring about 1.2 cm which appears stable since 2016. The gallbladder is contracted. The aorta demonstrates moderate atherosclerosis but appears normal in caliber. Multiple surgical clips are seen in the retroperitoneum. No lymphadenopathy is seen. There appears to be postsurgical changes from prior Oscar fundoplication. No distended loops of bowel are seen. There is no large collection of free air. No free fluid is appreciated. There are surgical clips in the abdomen. No acute osseous abnormality is seen. IMPRESSION: 1. No acute abnormality is seen in the abdomen or pelvis. 2. Postsurgical changes from prior Oscar fundoplication. 3. Mild hepatomegaly. There may be some fat infiltration the liver. No significant changes from the preliminary report. Dictated by: Dictated on workstation # [id number]
== END 2022-12-04 01:22 | disposition home or self-care (01) ==
LOC: EDUNIT# 20:13 → ER 20:15
DX: R14.0 Abdominal distension (gaseous) (principal); I10 Essential (primary) hypertension; Z98.890 Other specified postprocedural states
CPT/HCPCS: 36415; 71045; 74176; 80053; 83735; 84484; 85007; 85027; 85610; 85730; 93005; 93041

== ENCOUNTER 2023-02-25 15:34 | Emergency (ER) | payer MEDICARE ==
[~2023-02-25] VITALS: Ht 175 cm; Wt 95.0 kg
[~2023-02-25 15:34] MED LIST changes: +ACHD5005; +AMOX500C2; +ONDA4TAB11
--- NOTE | 2023-02-25 15:52 | ED Abdominal Pain ---
General Chief Complaint: Abdominal/GI Problems Stated Complaint: NAUSEA/VOMITING Nursing Triage Note: PT TO RM 4 PER W/C PT STATES STARTED GETTING SICK AFTER DRINKING DR PEPPER AT APPROX 1300. PT STATES IS EXTREMLY NAUSEATED, 2/10 ABD PAIN. PT STATES HAD HIATAL HERNIA REPAIR IN NOV. PT STATES HAS SL COLD SX SINCE TUESDAY Source of Information: Patient Exam Limitations: No Limitations History of Present Illness Date Seen by Provider: February 25, 2023 Time Seen by Provider: 15:40 Initial Comments Patient is a 67-year-old female who presents to the emergency room today with a chief complaint of epigastric abdominal "pressure", dry heaves, nausea, "cold sweats". She states it started around 2:00. She had a Dr. Pepper around 1245/1 PM today. She thinks that may be contributing to her symptoms. She feels very weak. She denies recent illness such as fevers, productive cough. She denies chest pain. States that her abdomen does not really hurt it is more like a bloating/pressure. She has had a history of ovarian cancer with hysterectomy tubal ligation, she has had hiatal hernia repair in November. She states a month ago she had some soda but did not have symptoms similar to this. Laying flat makes her symptoms a little worse. Timing/Duration: 1-3 Hours Severity/Quality: Moderate Location: Generalized Abdomen Radiation: No Radiation Activities at Onset: None Associated Symptoms: Nausea/Vomiting, Swelling/Mass in Abdomen ("Bloated"), Weakness (Generalized) Allergies and Home Medications Allergies Coded Allergies: Sulfa (Sulfonamide Antibiotics) (Unverified Allergy, Unknown, RASH, 07/24/20) adhesive (Unverified Allergy, Unknown, BLISTERS, 07/24/20) Patient Home Medication List Home Medication List Reviewed: Yes Amoxicillin (Amoxicillin) 500 Mg Capsule, (Reported) Entered as Reported by: NIA IYER on 12/03/222032 Atorvastatin Calcium (Atorvastatin Calcium) 80 Mg Tablet, 80 MG PO DAILY, (Reported) Entered as Reported by: CHICHI STEPHENS on 12/04/15 1343 Ezetimibe (Ezetimibe) 10 Mg Tablet, 10 MG PO DAILY, (Reported) Entered as Reported by: CHICHI STEPHENS on 04/18/20 1030 Famotidine (Famotidine) 40 Mg Tablet, 40 MG PO DAILY, (Reported) Entered as Reported by: CHICHI STEPHENS on 04/18/20 1039 Hydrocodone/Acetaminophen (Hydrocodone-Acetamin 5-325 mg) 5 Mg-325 Mg Tablet, (Reported) Entered as Reported by: NIA IYER on 12/03/222032 Levothyroxine Sodium (Levothyroxine Sodium) 150 Mcg Tablet, 150 MCG PO DAILY, (Reported) Entered as Reported by: CHICHI STEPHENS on 04/18/20 1039 Metoprolol Succinate (Metoprolol Succinate) 50 Mg Tab.er.24h, 50 MG PO DAILY, (Reported) Entered as Reported by: CHICHI STEPHENS on 04/18/20 103 Ondansetron (Ondansetron Odt) 4 Mg Tab.rapdis, (Reported) Entered as Reported by: NAI IYER on 12/03/222032 Pantoprazole Sodium (Pantoprazole Sodium) 20 Mg Tablet.dr, 20 MG PO DAILY, (Reported) Entered as Reported by: SELVIN JEROME on 07/24/20 1106 Review of Systems Review of Systems Constitutional: see HPI, malaise, other Cardiovascular: No Symptoms Reported Gastrointestinal: Nausea, Vomiting, Other (Bloated) Genitourinary: No Symptoms Reported Musculoskeletal: no symptoms reported Skin: other (Cold sweats) Psychiatric/Neurological: Other Past Ywxeorp-Eiszxg-Zkoluv Hx Patient Social History Tobacco Use?: No Substance use?: No Alcohol Use?: No Pt feels they are or have been: No Immunizations Up To Date Influenza Vaccine Up-to-Date: Yes; Up-to-Date First/Initial COVID19 Vaccinat: x4 Second COVID19 Vaccination Aidan: x4 Third COVID19 Vaccination Date: x4 Seasonal Allergies Seasonal Allergies: No Past Medical History Surgery/Hospitalization HX: thryoidectomy, thryoid ca, htn, hld, hiatial hernia repair Surgeries: Yes (bilat TKR, DXLS WITH OVARIAN CYSTECTOMY, HERNIA SX, ) Hysterectomy, Oophorectomy, Thyroidectomy Respiratory: Yes (spots on lung being watched, SOB, ) Cardiac: Yes Hypertension Neurological: No Reproductive Disorders: Yes Female Reproductive Disorders: Denies [employer] History: Hysterectomy Sexually Transmitted Disease: No HIV/AIDS: No Genitourinary: No Gastrointestinal: Yes (dysphagia, ) Gastroesophageal Reflux, Polyps Musculoskeletal: Yes (OSTEOARTHRITIS) Arthritis Endocrine: Yes (thyroid ca) HEENT: No Cancer: Yes Cervical, Thyroid What Type of Treatment Did You: Surgical Intervention Psychosocial: No Integumentary: No Blood Disorders: No Adverse Reaction/Blood Tranf: No (N/A) Physical Exam Vital Signs Vital Signs - First Documented 02/25/23 15:35 Temp 36.7 Pulse 91 Resp 18 B/P (MAP) 166/105 (125) Pulse Ox 97 Capillary Refill : Less Than 3 Seconds Height/Weight/BMI Height: 5'9.00" Weight: 210lbs. 0.0oz. [id number]; 31.00 BMI Method: General Appearance: WD/WN, mild distress HEENT: PERRL/EOMI Respiratory: lungs clear, normal breath sounds, no respiratory distress, no accessory muscle use Cardiovascular: regular rate, rhythm Gastrointestinal: soft, tenderness (mild epigastric tenderness) Extremities: normal range of motion, non-tender, normal inspection, no pedal edema Neurologic/Psychiatric: alert, oriented x 3, other (speaks with eyes closed; slow to respond; ) Skin: warm/dry, damp Progress/Results/Core Measures Results/Orders Lab Results Laboratory Tests Test 02/25/23 14:17 02/25/23 15:45 Range/Units Urine Opiates Screen NEGATIVE NEGATIVE Urine Oxycodone Screen NEGATIVE NEGATIVE Urine Methadone Screen NEGATIVE NEGATIVE Urine Propoxyphene Screen NEGATIVE NEGATIVE Urine Barbiturates Screen NEGATIVE NEGATIVE Ur Tricyclic Antidepressants Screen NEGATIVE NEGATIVE Urine Phencyclidine Screen NEGATIVE NEGATIVE Urine Amphetamines Screen NEGATIVE NEGATIVE Urine Methamphetamines Screen NEGATIVE NEGATIVE Urine Benzodiazepines Screen NEGATIVE NEGATIVE Urine Cocaine Screen NEGATIVE NEGATIVE Urine Cannabinoids Screen NEGATIVE NEGATIVE White Blood Count 7.7 4.3-11.0 10^3/uL Red Blood Count 5.18 H 3.80-5.11 10^6/uL Hemoglobin 16.1 H 11.5-16.0 g/dL Hematocrit 47 35-52 % Mean Corpuscular Volume 90 80-99 fL Mean Corpuscular Hemoglobin 31 25-34 pg Mean Corpuscular Hemoglobin Concent 34 32-36 g/dL Red Cell Distribution Width 12.3 10.0-14.5 % Platelet Count 268 130-400 10^3/uL Mean Platelet Volume 10.6 9.0-12.2 fL Immature Granulocyte % (Auto) 2 % Neutrophils (%) (Auto) 67 42-75 % Lymphocytes (%) (Auto) 21 12-44 % Monocytes (%) (Auto) 7 0-12 % Eosinophils (%) (Auto) 3 0-10 % Basophils (%) (Auto) 1 0-10 % Neutrophils # (Auto) 5.1 1.8-7.8 10^3/uL Lymphocytes # (Auto) 1.6 1.0-4.0 10^3/uL Monocytes # (Auto) 0.6 0.0-1.0 10^3/uL Eosinophils # (Auto) 0.3 0.0-0.3 10^3/uL Basophils # (Auto) 0.1 0.0-0.1 10^3/uL Immature Granulocyte # (Auto) 0.1 0.0-0.1 10^3/uL Sodium Level 143 135-145 MMOL/L Potassium Level 3.6 3.6-5.0 MMOL/L Chloride Level 108 H 98-107 MMOL/L Carbon Dioxide Level 23 21-32 MMOL/L Anion Gap 12 5-14 MMOL/L Blood Urea Nitrogen 17 7-18 MG/DL Creatinine 0.94 0.60-1.30 MG/DL Estimat Glomerular Filtration Rate 67 BUN/Creatinine Ratio 18 Glucose Level 112 H 70-105 MG/DL Calcium Level 9.4 8.5-10.1 MG/DL Corrected Calcium 8.5-10.1 MG/DL Total Bilirubin 0.6 0.1-1.0 MG/DL Aspartate Amino Transf (AST/SGOT) 37 H 5-34 U/L Alanine Aminotransferase (ALT/SGPT) 43 0-55 U/L Alkaline Phosphatase 116 40-136 U/L Troponin I < 0.028 <0.028 NG/ML Total Protein 7.2 6.4-8.2 GM/DL Albumin 4.6 H 3.2-4.5 GM/DL My Orders Orders - HAFSA HILL MD Ed Iv/Invasive Line Start (02/25/23 15:52) Cbc With Automated Diff (02/25/23 15:52) Comprehensive Metabolic Panel (02/25/23 15:52) Troponin I Joseph (02/25/23 15:52) Ekg Tracing (02/25/23 15:52) Chest 1 View, Ap/Pa Only (02/25/23 15:52) Ns Iv 1000 Ml (Sodium Chloride 0.9%) (02/25/23 16:15) Ondansetron Injection (Zofran Injectio (02/25/23 16:15) Drug Screen Stat (Urine) (02/25/23 16:04) Simethicone Tablet (Mylicon Chewable Tab (02/25/23 17:00) Antacid Suspension (Mylanta Suspension (02/25/23 17:00) Lidocaine 2% Viscous 15 Ml (Xylocaine Vi (02/25/23 17:00) Medications Given in ED Current Medications Medications Dose Ordered Sig/Nikita Route Start Time Stop Time Status Last Admin Dose Admin Al Hydrox/Mg Hydrox/Simethicone 30 ml ONCE ONCE PO 02/25/23 17:00 02/25/23 17:01 DC 02/25/23 17:23 30 ML Lidocaine HCl 5 ml ONCE ONCE PO 02/25/23 17:00 02/25/23 17:01 DC 02/25/23 17:23 5 ML Ondansetron HCl 8 mg ONCE ONCE IVP 02/25/23 16:15 02/25/23 16:16 DC 02/25/23 16:09 8 MG Simethicone 160 mg ONCE ONCE PO 02/25/23 17:00 02/25/23 17:01 DC 02/25/23 17:23 160 MG Vital Signs/I&O 02/25/23 15:35 Temp 36.7 Pulse 91 Resp 18 B/P (MAP) 166/105 (125) Pulse Ox 97 Blood Pressure Mean: 125 Progress Progress Note : Time: 17:44 Progress Note Patient reevaluated at this time, feels much better. She states that she got a lot of relief from the Maalox/viscous lidocaine/simethicone. She states she has passed a lot of gas. She is now smiling, interactive and looks a lot more comfortable. Reviewed discharge instructions with the patient. Recommended that she not drink any more carbonated beverages. She verbalized understanding plan of care. All questions are sought and answered. Patient is improved at discharge. Initial ECG Impression Date: February 25, 2023 Initial ECG Impression Time: 16:00 Initial ECG Rate: 75 Initial ECG Rhythm: Normal Sinus Initial ECG Intervals DC 253 QRS 110 QTC 458 Comment Q waves III and aVF no ST elevation Diagnostic Imaging Diagonstic Imaging: Xray Plain Films/CT/US/NM/MRI: chest Comments [facility] [place], [place] NAME: FARHAD CLEMENT [facility] REC#: [id number] PT STATUS: REG ER : 1955 PHYSICIAN: HAFSA HILL MD ADMIT DATE: 02/25/23/ER Draft Date of Exam:02/25/23 CHEST 1 VIEW, AP/PA ONLY INDICATION: Abdominal pain and pressure. Frontal chest obtained at 4:11 p.m. and compared to 12/03/2022. FINDINGS: There is cardiomegaly. There is central vascular congestion with some interstitial edema and mild bibasilar infiltrate. There is no pneumothorax or pleural fluid. IMPRESSION: Cardiomegaly and central vascular congestion and some interstitial edema with mild bibasilar infiltrate. There is no pleural fluid. Follow-up is recommended. Dictated on workstation # [id number] Dict: 02/25/23 1613 Trans: 02/25/23 1616 [id number] Interpreted by: SERA HUGHES MD Electronically signed by: Departure Impression Primary Impression: Gas bloat syndrome Disposition: 01 HOME, SELF-CARE Condition: Improved Departure-Patient Inst. Decision time for Depature: 17:51 Referrals: SRINATH STOVALL MD (PCP/Family) Primary Care Physician Patient Instructions: Gas and Bloating Add. Discharge Instructions: You should take this simethicone (Gas Relief) 3 times a day for the next couple of days to help prevent your symptoms from returning. Continue your other daily medications as prescribed. Try and avoid the carbonated beverages. Please follow-up with your primary care physician. Return to the emergency department for any new, concerning or emergent complaints. Copy Copies To 1: SRINATH STOVALL MD, KATHRYN M MD February 25, 2023 15:52
[2023-02-25 16:01] LABS: BASOPHILS # (AUTO) 0.1 10^3/uL (0.0-0.1); BASOPHILS % (AUTO) 1 % (0-10); EOSINOPHILS # (AUTO) 0.3 10^3/uL (0.0-0.3); EOSINOPHILS % (AUTO) 3 % (0-10); HEMATOCRIT 47 % (35-52); HEMOGLOBIN 16.1 g/dL (11.5-16.0); LYMPHOCYTES # (AUTO) 1.6 10^3/uL (1.0-4.0); LYMPHOCYTES % (AUTO) 21 % (12-44); MEAN CORPUSCULAR HEMOGLOBIN 31 pg (25-34); MEAN CORPUSCULAR HGB CONC 34 g/dL (32-36); MEAN CORPUSCULAR VOLUME 90 fL (80-99); MEAN PLATELET VOLUME 10.6 fL (9.0-12.2); MONOCYTES # (AUTO) 0.6 10^3/uL (0.0-1.0); MONOCYTES % (AUTO) 7 % (0-12); NEUTROPHILS # (AUTO) 5.1 10^3/uL (1.8-7.8); NEUTROPHILS % (AUTO) 67 % (42-75); PLATELET COUNT 268 10^3/uL (130-400); WHITE BLOOD COUNT 7.7 10^3/uL (4.3-11.0)
[2023-02-25 16:11] LABS: ALBUMIN 4.6 GM/DL (3.2-4.5); CHLORIDE 108 MMOL/L (98-107); POTASSIUM 3.6 MMOL/L (3.6-5.0); SODIUM 143 MMOL/L (135-145)
[2023-02-25 16:12] LABS: CALCIUM 9.4 MG/DL (8.5-10.1)
[2023-02-25 16:14] LABS: GLUCOSE 112 MG/DL (70-105); TOTAL PROTEIN 7.2 GM/DL (6.4-8.2)
[2023-02-25 16:15] LABS: BILIRUBIN,TOTAL 0.6 MG/DL (0.1-1.0); CARBON DIOXIDE 23 MMOL/L (21-32)
[2023-02-25] MEDS ORDERED: NS IV 1000 ML 1,000 ML IV SCH (16:15)
[2023-02-25] MEDS ORDERED: ONDANSETRON 4 MG/2 ML (SDV) Z0FRAN IVP ONE (16:15)
--- NOTE | 2023-02-25 16:16 | Diagnostic Imaging Report ---
INDICATION: Abdominal pain and pressure. Frontal chest obtained at 4:11 p.m. and compared to 12/03/2022. FINDINGS: There is cardiomegaly. There is central vascular congestion with some interstitial edema and mild bibasilar infiltrate. There is no pneumothorax or pleural fluid. IMPRESSION: Cardiomegaly and central vascular congestion and some interstitial edema with mild bibasilar infiltrate. There is no pleural fluid. Follow-up is recommended. Dictated by: Dictated on workstation # [id number]
[2023-02-25 16:17] LABS: ALKALINE PHOSPHATASE 116 U/L (40-136); CREATININE SERUM 0.94 MG/DL (0.60-1.30); GFR ESTIMATED 67
[2023-02-25 16:18] LABS: BUN/CREATININE RATIO 18
[2023-02-25 16:20] LABS: ALANINE AMINOTRANSFERASE 43 U/L (0-55)
[2023-02-25 16:37] LABS: AMPHETAMINE SCREEN, URINE NEGATIVE (NEGATIVE); BARBITURATE SCREEN URINE NEGATIVE (NEGATIVE); BENZODIAZEPINES SCREEN URINE NEGATIVE (NEGATIVE); CANNABINOID SCREEN, URINE NEGATIVE (NEGATIVE); COCAINE SCREEN URINE NEGATIVE (NEGATIVE); METHADONE STAT NEGATIVE (NEGATIVE); OPIATE SCREEN URINE NEGATIVE (NEGATIVE); OXYCODONE STAT NEGATIVE (NEGATIVE); PROPOXYPHENE STAT NEGATIVE (NEGATIVE); TRICYCLIC ANTIDEPRESSANTS SCRE NEGATIVE (NEGATIVE)
[2023-02-25] MEDS ORDERED: SIMETHICONE 80 MG (MYLICON) CHEW PO ONE (17:00)
[2023-02-25] MEDS ORDERED: LIDOCAINE 2% VISCOUS 15 ML UDC PO ONE (17:00)
[2023-02-25] MEDS ORDERED: ANTACID SUSP 30 ML UDC (MYLANTA) PO ONE (17:00)
[2023-02-25 17:57] VITALS: BP 137/94
== END 2023-02-25 17:57 | disposition home or self-care (01) ==
LOC: EDUNIT# 15:34 → ER 15:35
DX: R14.0 Abdominal distension (gaseous) (principal); R10.13 Epigastric pain; R11.2 Nausea with vomiting, unspecified; Z87.19 Personal history of other diseases of the digestive system; Z98.890 Other specified postprocedural states
CPT/HCPCS: 36415; 71045; 80053; 80306; 84484; 85025; 93005

== ENCOUNTER → 2023-05-30 | Outpatient (CLI) | payer MEDICARE ==
--- NOTE | 2023-05-30 11:42 | Diagnostic Imaging Report ---
INDICATION: Routine screening. Comparison is made with prior mammogram from 01/23/2021 and 02/28/2019. 2-D and 3-D bilateral screening mammography was performed with CAD. Both breasts are heterogeneously dense, limiting the sensitivity of mammography. The parenchymal pattern is stable. No mass or malignant-appearing microcalcifications are seen. Axillae are unremarkable. IMPRESSION: No mammographic features suspicious for malignancy are identified. ACR BI-RADS Category 1: Negative. Result letter will be mailed to the patient. Note: At least 10% of breast cancer is not imaged by mammography. BI-RADS Category 1 Dictated by: Dictated on workstation # [id number]
== END ==
LOC: RAD 07:33
PROVIDERS: ATTEND Family Medicine
DX: Z12.31 Encounter for screening mammogram for malignant neoplasm of breast (principal)
CPT/HCPCS: 77063; 77067